=== PATIENT | female | born 1940 | race Caucasian/White ===

== ENCOUNTER 2016-06-20 21:26 | Inpatient (IN) | payer MEDICARE ==
[~2016-06-20] VITALS: Ht 152.4 cm; Wt 63.5 kg
[2016-06-20] MEDS ORDERED: CITALOPRAM HBR10 M1 ORAL (21:34)
[2016-06-20] MEDS ORDERED: VITAMIN D400 INTLU ORAL (21:34)
[2016-06-20] MEDS ORDERED: LEVOTHYROXINE25 MCG ORAL (21:34)
[2016-06-20] MEDS ORDERED: ZANTAC150 MG ORAL (21:34)
[2016-06-20] MEDS ORDERED: LORAZEPAM0.5 MG ORAL (21:34)
[2016-06-20] MEDS ORDERED: METOPROLOL SUCC25 MG ORAL (21:34)
[2016-06-20 22:00] LABS: BASOPHILS % (AUTO) 1.3 % (0.0-2.0); EOSINOPHILS % (AUTO) 1.2 % (0.0-3.0); LYMPHOCYTES % (AUTO) 35.8 % (20.0-45.0); MEAN CORPUSCULAR HEMOGLOBIN 31.6 PG (27.0-31.0); MEAN CORPUSCULAR VOLUME 96 FL (80-99); MEAN PLATELET VOLUME 7.3 FL (6.5-10.1); MONOCYTES % (AUTO) 10.3 % (1.0-10.0); NEUTROPHILS % (AUTO) 51.4 % (45.0-75.0); PLATELET COUNT 228 K/UL (150-450); RED BLOOD COUNT 3.86 M/UL (4.20-5.40); RED CELL DISTRIBUTION WIDTH 12.9 % (11.6-14.8); WHITE BLOOD COUNT 6.5 K/UL (4.8-10.8)
[2016-06-20 22:16] LABS: TROPONIN I < 0.30 ng/mL (<=0.30)
[2016-06-20 22:17] LABS: ALANINE AMINOTRANSFERASE 12 U/L (3-33); ANION GAP 16 (5-15); ASPARTATE AMINO TRANSFERASE 16 U/L (5-40); CALCIUM 7.7 mg/dL (8.6-10.2); CARBON DIOXIDE 22 mEQ/L (20-30); CHLORIDE 102 mEQ/L (98-107); CREATININE 0.8 mg/dL (0.5-0.9); HEMOLYSIS 10; POTASSIUM 3.4 mEQ/L (3.4-4.9); SODIUM 140 mEQ/L (135-145); TOTAL PROTEIN 5.8 g/dL (6.6-8.7)
[2016-06-20 22:25] VITALS: BP 168/104
[2016-06-20 22:27] LABS: CKMB 1.6 ng/mL (< 3.8)
[2016-06-20] MEDS ORDERED: TdaP Vaccine 0.5ml Syr IM ONE (22:45)
[2016-06-20] MEDS ORDERED: Lidocaine 1% 10mg/ml/Epi 0.005mg/ml 30ml vial INJ ONE (22:45)
--- NOTE | 2016-06-20 23:23 | Emergency Room Report ---
History of Present Illness General Chief Complaint: Syncope Source: Patient, Family Member Present Illness HPI 76 YO F BIBEMS with family with ?syncope and head trauma to pole. Patient denies mechanical trip and fall. Was feeling a "slight headache" to right forehead earlier. Not sure what happened. Denies precipitating chest pain, SOB , palpitaions, abd pain then or now. C/o mild headache to left forehead, left orbit now. Unknown tetanus. On ASA. 4 previous cardiac stents, last placed 8- 10 years prior. From [place]. Allergies: Coded Allergies: IODINE (Verified Allergy, Unknown, 06/20/16) Patient History Past Medical History: HTN, CAD Past Surgical History: other - Stent placement Pertinent Family History: none Now: No Immunizations: UTD Reviewed Nursing Documentation: PMH: Agreed, PSxH: Agreed Nursing Documentation-PMH Hx Cardiac Problems: Yes - 5X STENTS Hx Hypertension: Yes Review of Systems All Other Systems: negative except mentioned in HPI Physical Exam Vital Signs Date Time Temp Pulse Resp B/P Pulse Ox O2 Delivery O2 Flow Rate FiO2 06/20/16 21:25 98.6 81 18 164/83 97 Room Air Sp02 EP Interpretation: reviewed, normal General Appearance: normal inspection, well appearing, no apparent distress, alert, GCS 15, non-toxic Head: normocephalic, other - Significant swelling, hematoma to left lower orbit. EOMI, PERRLA. 2 lacerations above left eyebrow, one is 1cm linear and one is 2cm linear Eyes: bilateral eye EOMI, bilateral eye PERRL ENT: normal ENT inspection, hearing grossly normal, normal voice Neck: normal inspection, full range of motion, supple, no bony tend Respiratory: normal inspection, lungs clear, normal breath sounds, no respiratory distress, no retraction, no wheezing Cardiovascular #1: regular rate, rhythm, no edema Gastrointestinal: normal inspection, normal bowel sounds, non tender, soft, no guarding, no hernia Genitourinary: no CVA tenderness Musculoskeletal: normal inspection, back normal, normal range of motion, Marc' s Sign negative Neurologic: normal inspection, alert, oriented x3, responsive, health management consultant III-XII nml as tested, motor strength/tone normal, speech normal Psychiatric: normal inspection Skin: normal inspection Lymphatic: normal inspection Procedures Laceration/Wound Repair Laceration/Wound Repair : Consent: Verbal Wound Location: face Wound's Depth, Shape: superficial Wound Explored: clean Betadine Prep?: Yes Anesthesia: Lidocaine w/ Epi Wound Debrided: minimal Wound Repaired With: sutures Suture Size/Type: 5:0 Number of Sutures: 3 Layer Closure?: No Sterile Dressing Applied?: Yes Splint Applied?: No Sling Applied?: No Patient Tolerated: Well Complications: None Medical Decision Making Diagnostic Impression: Primary Impression: Syncope Qualified Codes: R55 - Syncope and collapse Additional Impression: Forehead laceration Qualified Codes: S01.81XA - Laceration without foreign body of other part of head, initial encounter ER Course Labs: No leuks. H&H stable. Troponin 0. CT head, facial bones, and C-spine negative for acute trauma ECG is first degree AV block CXR: No acute abnormality Lacerations repaired, see procedure note Analgesia provided Tetanus updated Family, patient OK with admission. Endorsed to Dr Olivera for tele admission at 1127pm EKG Diagnostic Results Rate: normal, other - 1st degree AV block Rhythm: NSR ST Segments: no acute changes ASA given to the pt in ED: No Rhythm Strip Diag. Results EP Interpretation: yes Rate: 84 Rhythm: NSR, no PVC's, no ectopy Chest X-Ray Diagnostic Results EP Interpretation: Yes Findings: no consolidation, no effusion, no pneumothorax, no acute cardiopulmonary disease Number of Views: 1 Last Vital Signs Date Time Temp Pulse Resp B/P Pulse Ox O2 Delivery O2 Flow Rate FiO2 06/20/16 22:25 97.7 74 14 168/104 98 Room Air Status: improved Disposition: ADMITTED INPATIENT Condition: Serious Referrals: NOT CHOSEN IPA/,REFERRING (PCP) DEB GUPTA M.D. Jun 20, 2016 23:23
[2016-06-20 23:30] VITALS: BP 140/98
[2016-06-20] MEDS ORDERED: Oxycodone/Acetaminophen 5-325 ORAL ONE (23:30)
[2016-06-20] MEDS ORDERED: Mylanta II UD 30ml ORAL PRN (23:45)
[2016-06-20] MEDS ORDERED: LORazepam Inj 2mg/ml 1ml IV PRN (23:45)
[2016-06-20] MEDS ORDERED: DuoNeb 0.5-3(2.5)mg/3ml neb HHN PRN (23:45)
[2016-06-20] MEDS ORDERED: Nitroglycerin Subl 0.4mg tab (Bottle Of 25) SL PRN (23:45)
[2016-06-20] MEDS ORDERED: Morphine Sulfate 2mg/ml Inj IVP PRN (23:45)
[2016-06-20] MEDS ORDERED: Miralax 17gm pkt ORAL PRN (23:45)
[2016-06-21 01:50] VITALS: BP 118/78
[2016-06-21 03:23] VITALS: BP 145/65
[2016-06-21] MEDS ORDERED: Levothyroxine 25mcg tab ORAL SCH (06:30)
[2016-06-21 07:16] LABS: PROTHROMBIN TIME 9.9 SEC (9.30-11.50)
[2016-06-21 07:46] LABS: ALANINE AMINOTRANSFERASE 12 U/L (3-33); ALBUMIN/GLOBULIN RATIO 1.4 (1.0-2.7); ANION GAP 14 (5-15); ASPARTATE AMINO TRANSFERASE 17 U/L (5-40); CALCIUM 8.9 mg/dL (8.6-10.2); CARBON DIOXIDE 25 mEQ/L (20-30); CHLORIDE 101 mEQ/L (98-107); CHOLESTEROL 223 mg/dL (< 200); CHOLESTEROL/HDL RATIO 3.9 (3.3-4.4); CREATININE 0.8 mg/dL (0.5-0.9); HEMOLYSIS 8; LDL CHOLESTEROL (CALC.) 147 mg/dL (60-99); POTASSIUM 4.2 mEQ/L (3.4-4.9); SODIUM 140 mEQ/L (135-145); TOTAL PROTEIN 6.3 g/dL (6.6-8.7)
[2016-06-21 07:48] LABS: BASOPHILS % (AUTO) 0.4 % (0.0-2.0); EOSINOPHILS % (AUTO) 0.6 % (0.0-3.0); LYMPHOCYTES % (AUTO) 25.3 % (20.0-45.0); MEAN CORPUSCULAR HEMOGLOBIN 31.2 PG (27.0-31.0); MEAN CORPUSCULAR HGB CONC 33.1 G/DL (32.0-36.0); MEAN CORPUSCULAR VOLUME 94 FL (80-99); MEAN PLATELET VOLUME 8.4 FL (6.5-10.1); MONOCYTES % (AUTO) 10.2 % (1.0-10.0); NEUTROPHILS % (AUTO) 63.6 % (45.0-75.0); PLATELET COUNT 226 K/UL (150-450); RED BLOOD COUNT 3.55 M/UL (4.20-5.40); RED CELL DISTRIBUTION WIDTH 12.7 % (11.6-14.8); WHITE BLOOD COUNT 6.4 K/UL (4.8-10.8)
[2016-06-21 08:00] VITALS: BP 116/53
[2016-06-21] MEDS ORDERED: Citalopram Hydrobromide 10 MG TAB ORAL SCH (09:00)
[2016-06-21] MEDS ORDERED: Heparin 5000 units/ml inj SUBQ SCH (09:00)
--- NOTE | 2016-06-21 10:15 | Diagnostic Imaging Report ---
Indication: PAIN, status post fall Technique: One view of the chest Comparison: none Findings: Lungs and pleural spaces are clear. Heart size is normal. Impression: No acute process
--- NOTE | 2016-06-21 10:45 | Neurology Progress Note ---
Objective Physical Exam Last Vital Signs Date Time Temp Pulse Resp B/P Pulse Ox O2 Delivery O2 Flow Rate FiO2 06/21/16 09:22 55 145/65 06/21/16 08:00 97.9 17 95 Room Air Laboratory Tests Test 06/20/16 21:44 06/21/16 04:40 White Blood Count 6.5 K/UL (4.8-10.8) 6.4 K/UL (4.8-10.8) Red Blood Count 3.86 M/UL (4.20-5.40) L 3.55 M/UL (4.20-5.40) L Hemoglobin 12.2 G/DL (12.0-16.0) 11.1 G/DL (12.0-16.0) L Hematocrit 37.1 % (37.0-47.0) 33.5 % (37.0-47.0) L Mean Corpuscular Volume 96 FL (80-99) 94 FL (80-99) Mean Corpuscular Hemoglobin 31.6 PG (27.0-31.0) H 31.2 PG (27.0-31.0) H Mean Corpuscular Hemoglobin Concent 33.0 G/DL (32.0-36.0) 33.1 G/DL (32.0-36.0) Red Cell Distribution Width 12.9 % (11.6-14.8) 12.7 % (11.6-14.8) Platelet Count 228 K/UL (150-450) 226 K/UL (150-450) Mean Platelet Volume 7.3 FL (6.5-10.1) 8.4 FL (6.5-10.1) Neutrophils (%) (Auto) 51.4 % (45.0-75.0) 63.6 % (45.0-75.0) Lymphocytes (%) (Auto) 35.8 % (20.0-45.0) 25.3 % (20.0-45.0) Monocytes (%) (Auto) 10.3 % (1.0-10.0) H 10.2 % (1.0-10.0) H Eosinophils (%) (Auto) 1.2 % (0.0-3.0) 0.6 % (0.0-3.0) Basophils (%) (Auto) 1.3 % (0.0-2.0) 0.4 % (0.0-2.0) Sodium Level 140 mEQ/L (135-145) 140 mEQ/L (135-145) Potassium Level 3.4 mEQ/L (3.4-4.9) 4.2 mEQ/L (3.4-4.9) Chloride Level 102 mEQ/L (98-107) 101 mEQ/L (98-107) Carbon Dioxide Level 22 mEQ/L (20-30) 25 mEQ/L (20-30) Anion Gap 16 (5-15) H 14 (5-15) Blood Urea Nitrogen 24 mg/dL (7-23) H 22 mg/dL (7-23) Creatinine 0.8 mg/dL (0.5-0.9) 0.8 mg/dL (0.5-0.9) Estimat Glomerular Filtration Rate mL/min (>60) mL/min (>60) Glucose Level 82 mg/dL (74-106) 83 mg/dL (74-106) Calcium Level 7.7 mg/dL (8.6-10.2) L 8.9 mg/dL (8.6-10.2) Total Bilirubin < 0.2 mg/dL (0.0-1.2) 0.2 mg/dL (0.0-1.2) Aspartate Amino Transf (AST/SGOT) 16 U/L (5-40) 17 U/L (5-40) Alanine Aminotransferase (ALT/SGPT) 12 U/L (3-33) 12 U/L (3-33) Alkaline Phosphatase 64 U/L (35-104) 61 U/L (35-104) Total Creatine Kinase 51 U/L (26-140) Creatine Kinase MB 1.6 ng/mL (< 3.8) Creatine Kinase MB Relative Index 3.1 Troponin I < 0.30 ng/mL (<=0.30) Total Protein 5.8 g/dL (6.6-8.7) L 6.3 g/dL (6.6-8.7) L Albumin 3.9 g/dL (3.5-5.2) 3.7 g/dL (3.5-5.2) Globulin 1.9 g/dL 2.6 g/dL Albumin/Globulin Ratio 2.0 (1.0-2.7) 1.4 (1.0-2.7) Prothrombin Time 9.9 SEC (9.30-11.50) Prothromb Time International Ratio 1.0 (0.9-1.1) Activated Partial Thromboplast Time 27 SEC (23-33) Triglycerides Level 96 mg/dL (< 150) Cholesterol Level 223 mg/dL (< 200) H LDL Cholesterol 147 mg/dL (60-99) H HDL Cholesterol 57 mg/dL (> 60) Cholesterol/HDL Ratio 3.9 (3.3-4.4) Thyroid Stimulating Hormone (TSH) 2.840 uIU/mL (0.300-4.500) Impression/Recommendations Problems: (1) s/p mechanical fall (2) Abnormality of gait due to impairment of balance (3) Forehead laceration Recommendations # [id number] DAT FLETCHER Jun 21, 2016 10:45
[2016-06-21 12:00] VITALS: BP 123/63
[2016-06-21 13:11] VITALS: BP_SYST 108; BP_SYST 123; BP_SYST 124; BP_DIAS 50; BP_DIAS 62; BP_DIAS 63
--- NOTE | 2016-06-21 15:43 | History & Physical ---
History and Physical History & Physicial Arron Olivrea MD Jun 21, 2016 15:43
--- NOTE | 2016-06-21 15:48 | Consultation ---
DATE OF CONSULTATION: 06/21/2016 NEUROLOGICAL CONSULTATION CONSULTING PHYSICIAN: Darrel Lewis M.D. REFERRING PHYSICIAN: Arron Olivera M.D. HISTORY OF PRESENT ILLNESS: This 76-year-old female seen in neurological consultation to evaluate episode of fall with a head trauma. The patient who is a visitor from [place] was at the tourist site with her family. She was walking on a carpet and trying to hold onto a rail, but instead she had some kind of flimsy cord. At one point, she tried to lean towards the cord, she lost balance, and fell down. She fell down on the left side of her body. She hit her head flat against the floor. She had no loss of consciousness. No changes in level of consciousness. She stayed on the floor until someone came in and try to help her out. Paramedics were called to the scene. She was then brought to emergency room complaining of mild headache in the right forehead. Her vital signs on admission stable. Blood pressure 164/83, temperature 98.6. Her initial workup included normal CBC studies, normal coagulation panel, and electrolyte panel with anion gap of 16, BUN of 24, calcium 7.7, otherwise quite normal. There is elevation in cholesterol 223 and LDL of 147, but normal TSH and troponin. Normal liver function. Her imaging studies included chest x-ray, which revealed no acute process. Her CT scan of the head as well as CT scan of the facial bones and CT scan of the cervical spine revealed no fracture, no dislocation, and no intracranial abnormalities. EKG revealed first-degree AV block. On examination, she had a left forehead laceration, which was repaired under local anesthesia. Her tetanus was updated. During observation, her vital signs included blood pressure 168/104. PAST MEDICAL HISTORY: The patient has a history of stroke resulted in mild left hemiparesis, gradually resolved; history of fall without loss of consciousness one year ago; history of hypertension; coronary artery disease, status post angioplasty; and some depression. MEDICATIONS: The patient's treatment now includes citalopram, levothyroxine, lorazepam, metoprolol, ranitidine, and vitamin D supplement. ALLERGIES: Amoxicillin, iodine, and promethazine. REVIEW OF SYMPTOMS: The patient indicates that she ambulates fairly well, but she has some fear of fall and for this reason, when outside, she is looking for someone to hold onto. Lately, she has limited ambulation. For the last few months, she is a and limited her physical activities, spending most of the time at home. The patient has no chest pain, no palpitations, no respiratory problems. She has numbness in her left hand following previous left elbow surgery. No urinary or bowel incontinence. No seizures. PHYSICAL EXAMINATION: GENERAL: A well-developed, well-nourished, very pleasant lady, not in acute distress, lying comfortably in bed, her family at bedside. VITAL SIGNS: Now stable. Blood pressure 145/65, heart rate of 55, and afebrile. HEENT: Head, normocephalic. There is a sterile gauze placed on the left frontal laceration. There is acute tenderness on palpation in the left frontal parietal area. There is acute tenderness on palpation in left TMJ area. With mouth opening, more pain in her left TMJ. EXTREMITIES: Upper and lower extremities without clubbing, cyanosis, or edema. There is a palpable tenderness in the left shoulder. Peripheral pulses 1+ symmetric. MENTAL STATUS: She is fully alert and oriented x3. Speech fluent. Language intact. No aphasia. No apraxia. She has a good recent recall, but responses are somewhat delayed. Mood apparently depressed. CRANIAL NERVES: Cranial Nerve II: Pupils both responding to light and accommodation. Extraocular movement intact. No nystagmus. CRANIAL NERVE V: Normal corneal responses. CRANIAL NERVE VII: No facial asymmetry. CRANIAL NERVE VIII: Slight decrease in hearing. CRANIAL NERVES IX THROUGH XII: Tongue is in midline. Symmetric palate elevation. MOTOR EXAMINATION: Normal muscle tone. Strength 5/5 in all extremities. No involuntary movement. Deep tendon reflexes 1+ and symmetric with downgoing toes on both sides. SENSORY EXAMINATION: Normal to pinprick and light touch, except decreased pin sensation, left hand. GAIT: Slow, but stable. IMPRESSION: 1. This is a 76-year-old female with a mechanical fall, resulting in a blunt head trauma with laceration and left TMJ injury. 2. History of right middle cerebral artery distribution stroke, resolved. 3. Coronary artery disease, status post angioplasty. 4. Hypertension. 5. Hyperlipidemia. RECOMMENDATION: 1. Aspirin 81 mg. 2. Statins. 3. Use cane for ambulation. 4. Continue with antidepressants as per family physician. 5. Neurologically stable. Thank you for allowing me to see this interesting patient in neurological consultation. Darrel Lewis M.D. DR: DAVIDSON JOB#: [id number] CC:
--- NOTE | 2016-06-21 22:29 | History and Physical Report ---
DATE OF ADMISSION: 06/20/2016 CHIEF COMPLAINT: Mechanical fall and left-sided facial injury. 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 The patient stated that she tried to reach an object and to hold onto, however she was unbalanced and the object was a rope and it was solid enough and subsequently she fell on the left side of her body and she sustained an injury to the left side of the face and she denies any chest pain, shortness of breath, or palpitation. She denies any abdominal pain prior to that. Denies any loss of consciousness. Denies any bowel or urinary incontinence. Denies any tongue biting. She complained about the headache, mild headache and forehead headache and left orbital pain and she is presently taking aspirin for stent placement in the heart. Shortly after initial evaluation in the emergency room, the patient was admitted to the hospital with fall, possible syncope versus mechanical fall. PAST MEDICAL HISTORY/PAST SURGICAL HISTORY: As above. History of hypertension, dyslipidemia, coronary artery disease, status post four stents placement, lupus, cataract surgery, right breast benign growth removal and breast reduction, history of hypothyroidism, and growth removal from the stomach about 20 years ago. MEDICATIONS: Medications at home are significant for aspirin, Synthroid, Celexa, lorazepam, metoprolol, Zantac, and vitamin D. ALLERGIES: Phenergan, iodine, and ampicillin. SOCIAL HISTORY: Denies any smoking, alcohol, or drugs. She lives by herself. She is presently visiting us from [place], [place]. She was in [place] with her family member, son, and [id number]. FAMILY HISTORY: Noncontributory. REVIEW OF SYSTEMS: Mostly as above. Denies any dysuria, frequency, hematuria, or hematochezia. Denies any hemoptysis or hematemesis. Denies any suicidal or homicidal ideation. Denies any double vision. Denies any loss of consciousness. PHYSICAL EXAMINATION: VITAL SIGNS: On admission, temperature is 98.6 degrees, pulse 81, respiration 18, and blood pressure 164/83. GENERAL: The patient is awake and responsive, no acute distress. HEENT: Head and Neck on examination, pupils are equal, round, and reactive to light. Extraocular movements are intact. Left side above the orbital area, there was a hematoma with laceration and laceration above the left eyebrow. One is 1 cm linear and other one is 2 cm linear, status post a suture in the ER. Neck is supple. No JVD. LUNGS: Good air entry. No wheezing or rales. HEART: S1 and S2. Regular rate and rhythm. No gallops. ABDOMEN: Soft, nondistended, and nontender. Positive bowel sounds. EXTREMITIES: No cyanosis, clubbing, or edema. NEUROLOGIC: Cranial nerves II through XII are grossly intact. Moves all four extremities. Gait is intact. GENITOURINARY AND RECTAL: She refused and deferred. NEUROLOGICAL: Mood and affect are intact. LABORATORY DATA: On admission from the ER, sodium is 140, potassium 3.4, chloride 102, bicarbonate 22, BUN 24, creatinine 0.8, glucose 82, and calcium 7.7. Total bilirubin is less than 0.2. Albumin is 3.9. Cholesterol is 223 and LDL is 147. PT is 0.9, INR 1.0, and PTT 27. WBC is 6.5, hemoglobin 12, hematocrit 37, and platelets 228,000. DIAGNOSTIC DATA: The patient had a chest x-ray, unremarkable. No acute process. The patient had an echocardiogram done, which noted to be ejection fraction of 55% to 60% with mild left ventricular hypertrophy. No evidence of pericardial effusion. The pulmonic valve was not well visualized. Trace mitral regurgitation. Trace tricuspid regurgitation. Otherwise, all negative. Carotid Duplex was essentially unremarkable as well. EKG is normal sinus rhythm, ventricular rate of 84, no ST-elevation was noted, and nonspecific T-wave changes. ASSESSMENT: 1. Mechanical fall. 2. Gait disturbance and balance problem. 3. Left side of forehead laceration. 4. Coronary artery disease, status post percutaneous transluminal coronary angioplasty with stent x4. 5. History of lupus. 6. Hypertension. 7. Dyslipidemia. PLAN: At this time, the patient has been seen by Dr. Darrel Lewis from Neurology, who confirmed that the patient had status post mechanical fall and will follow up. After further discussion with the patient as well as family member, I concede to discharge the patient to home today to be followed up with the primary doctor within one to two weeks. Arron Olivera M.D. DR: Cliff JOB#: [id number] CC:
--- NOTE | 2016-06-22 12:40 | Diagnostic Imaging Report ---
APPROVED REPORT CPT Code: 36466 Vascular Symptoms CVA/TIA: Doppler Spectral Velocity Analysis RightLeft carotid arteries. ECA - Imaging reveals irregular plaque in the external carotid artery. The Doppler signal indicates the degree of stenosis is minimal (10%) in the external carotid artery. VERTEBRAL - The vertebral artery is patent, without evidence of stenosis or steal. LEFT SIDE: CCA - Imaging reveals no significant plaque in the common carotid artery. ICA arteries. The Doppler signal indicates the degree of stenosis is minimal (10-20%) in the internal carotid, and in the external carotid arteries. VERTEBRAL - The vertebral artery is patent, without evidence of stenosis or steal.
[2016-06-24] MEDS ORDERED: ATORVASTATIN CA10 MG ORAL (07:02)
[2016-06-24] MEDS ORDERED: ASPIR 8181 MG ORAL (07:02)
--- NOTE | 2016-06-24 07:07 | Discharge Summary ---
Discharge Summary Hospital Course Date of Admission Jun 20, 2016 at 22:18 Date of Discharge Jun 21, 2016 at 16:22 Admitting Diagnosis SYNCOPE HPI Gladys Parikh is a 76 year old female who was admitted on Jun 20, 2016 at 22:18 for Syncope Hospital Course dc summary dictated # [id number] Discharge Medications New Medications: Aspirin* (Aspir 81*) 81 Mg Tablet.dr 81 MG ORAL DAILY, #30 TAB Atorvastatin Calcium* (Lipitor*) 10 Mg Tablet 10 MG ORAL BEDTIME, #30 TAB Continued Medications: Citalopram Hydrobromide* (Citalopram Hbr*) 10 Mg Tablet 10 MG ORAL DAILY, TAB Levothyroxine Sodium* (Levothyroxine Sodium*) 25 Mcg Tablet 25 MCG ORAL DAILY, TAB Take in the morning on an empty stomach, at least 30 minutes before food. Lorazepam* (Lorazepam*) 0.5 Mg Tablet 0.5 MG ORAL THREE TIMES A DAY PRN for For Anxiety, TAB Metoprolol Succinate* (Metoprolol Succinate*) 25 Mg Tab.er.24h 25 MG ORAL DAILY, TAB Ranitidine Hcl* (Zantac*) 150 Mg Tablet 300 MG ORAL DAILY, #30 TAB 0 Refills Vitamin D (Vitamin D3) 400 Unit Tablet 400 UNITS ORAL DAILY, TAB Discharge Condition Upon Discharge: stable Discharge Disposition Patient was discharged to Home () Discharge Diagnoses: Discharge Instructions Discharge Instructions Special Instructions I have been assigned to complete a D/C Summary on this account. I was not involved in the patient management Chely Ennis NP (Vanchtein) Jun 24, 2016 07:07
--- NOTE | 2016-06-24 11:36 | Diagnostic Imaging Report ---
Indication: PAIN, status post fall Technique: Spiral acquisitions obtained through the cervical spine. No IV contrast utilized. Multiplanar reconstructions were generated. Total dose length product 241 mGycm. 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 The cervical lordosis is somewhat exaggerated, suspect an artifact of positioning. There is very slight anterior offset of C4 on C5. Otherwise normal bony alignment. No prevertebral soft tissue swelling. No acute fractures. No dislocations. The vertebral body heights are preserved. There is degenerative disc narrowing at C5-6 and C6-7. At C2-3, no significant disc old or protrusion or spinal stenosis. There is moderate neural foraminal narrowing on the left. At C3-4, no significant disc bulge or protrusion or spinal stenosis. Facet and uncinate hypertrophy results in mild right and severe left neural foraminal narrowing At C4-5, no significant disc bulge or protrusion. Facet hypertrophy results in severe narrowing of the left neural foramen. At C5-6,there is mild right, moderate to severe left neural foraminal stenosis. There is mild narrowing of the spinal canal due to posterior osteophytes and short pedicles. At C6-7, no significant disc bulge or protrusion or spinal stenosis. There is severe right, moderate left neural foraminal stenosis, due to uncinate and facet hypertrophy. At C7-T1, no significant disc bulge or protrusion. There is mild narrowing of left neural foramen. The included extraspinal soft tissues are unremarkable. Impression: No acute bony trauma Occipital and C1 segmentation anomaly, as described Multilevel degenerative changes, as detailed on a level by level basis above. This agrees with the preliminary interpretation provided overnight by [facility] teleradiology service. The CT scanner at [facility] is accredited by the [employer] and the scans are performed using protocols designed to limit radiation exposure to as low as reasonably achievable to attain images of sufficient resolution adequate for diagnostic evaluation.
--- NOTE | 2016-06-24 12:30 | Cardiology Report ---
APPROVED REPORT EKG Measurement Heart [id number] Sinus rhythm with 1st degree AV block Abnormal ECG
--- NOTE | 2016-06-25 04:09 | Discharge Summary 2 SIG ---
DATE OF ADMISSION: 06/20/2016 DATE OF DISCHARGE: 06/21/2016 REASON FOR ADMISSION: 76-year-old female with past medical history significant for stroke 6 years ago, hypertension, dyslipidemia, coronary artery disease, status post multiply stent placement, history of lupus, benign breast mass growth in the stomach, s/p resection 20 years ago, presented to the hospital after she sustained mechanical fall and head injury to the left side of her face. The patient, at that time stated that she tried to reach an object and hold onto it, however, she was unbalanced and fell on the left side of her body and sustained injury to the left side of her face. Upon presentation, she denied any chest pain, shortness of breath, or palpitations. She denied abdominal pain. She denies loss of consciousness or blackouts. She denied bowel or urinary incontinence. No tongue biting. No history of seizures. She did complain of the headache located mainly in the forehead and the left orbital pain. The patient was taking aspirin due to history of stent placement. The patient undergone CT of the head and CT of the C-spine, which were both negative. Basic laboratories were done. Electrolytes were stable. No leukocytosis. Stable hemoglobin and hematocrit. Troponin negative. EKG revealed sinus rhythm with first-degree AV block. Chest x-ray revealed no acute cardiopulmonary disease. The patient sustained a laceration to the forehead, which was repaired in the emergency room. The patient admitted to telemetry floor for further management. ADMITTING DIAGNOSES: 1. Status post fall 2. Possible syncope versus mechanical fall. 3. Forehead laceration with repair HOSPITAL STAY: The patient was admitted to telemetry floor. On telemetry in sinus rhythm with first-degree AV block. No evidence of arrhythmias. Neurology evaluation was requested . As mentioned above, CT of the head revealed no acute intracranial pathology. CT of the C-spine revealed no acute pathology. There was no facial bone injury. Neurologist evaluated the patient and recommended continue aspirin as well as add statin since lipid panel revealed elevated total cholesterol and elevated LDL. Carotid duplex was essentially negative. The orthostatic blood pressure was checked. No evidence of orthostatic changes. The patient was working with physical occupational therapists. Fall precaution maintained. Blood pressure was stable with beta oneil. DVT prophylaxis provided. The patient has a history of hypothyroidism, TSH within normal limits. The patient visited out of state and wanted to be discharged. Physical therapy deemed her stable. Due to rapid and unexpected improvement in the patient condition, the patient was discharged the next day. DISCHARGE DIAGNOSES: 1. Status post fall. 2. Possible syncope. 3. Blunt head trauma. 4. Forehead laceration status post repair. 5. History of coronary artery disease with angioplasty. 6. History of cerebrovascular accident. 7. Hyperlipidemia. 8. Hypothyroidism. 9. Hypertension. 10. Gait and balance disturbance. DISCHARGE MEDICATIONS: See medication reconciliation list. DISCHARGE INSTRUCTIONS: The patient discharged home. Follow up with the primary medical doctor. Arron Olivera M.D. I have been assigned to dictate discharge summary on this account and I was not involved in the patient's management. Chely LairdWoodhull Medical CenterNova N.PAriadne DR: Winnie JOB#: [id number] CC: ENRIQUE
--- NOTE | 2016-06-28 14:37 | Diagnostic Imaging Report ---
Indication: PAIN left orbital trauma, swelling, fall Technique: spiral acquisitions obtained through the brain. Angled axial and coronal 5 x 5 mm slices were reconstructed. No IV contrast utilized. Radiation dose was minimized using automated exposure control Total dose length product 1320s mGycm. CTDIvol(s) 70 mGy Comparison: none FINDINGS: No acute hemorrhage or edema. No mass effect or midline shift. There is age-related enlargement of the ventricles and extra axial CSF spaces. There is periventricular deep white matter ischemic change. Normal you-white differentiation. Visualized orbits are unremarkable. There is bilateral maxillary sinus mucosal disease.. Intact calvarium. There is a round 16 mm diameter soft tissue hematoma in the left malar region. No underlying malar fracture is demonstrated. IMPRESSION: Chronic and age-related changes. Negative for acute intracranial bleed or mass effect Evidence of left malar region soft tissue trauma This agrees with the preliminary interpretation provided overnight by [facility]. The CT scanner at [facility] is accredited by the [employer] and the scans are performed using protocols designed to limit radiation exposure to as low as reasonably achievable to attain images of sufficient resolution adequate for diagnostic evaluation
--- NOTE | 2016-06-28 14:37 | Cardiology Report ---
APPROVED REPORT EXAM: Two-dimensional and M-mode echocardiogram with Doppler and color Doppler. INDICATION LV function M-Mode DIMENSIONS IVSd1.2 (0.7-1.1cm)Left Atrium (MM)3.4 (1.6-4.0cm) LVDd3.9 (3.5-5.6cm)Aortic Root2.7 (2.0-3.7cm) PWd1.1 (0.7-1.1cm)Aortic Cusp Exc.1.2 (1.5-2.0cm) LVDs2.5 (2.5-4.0cm) PWs1.4 cm Technically difficult study due to poor acoustical windows. Normal left ventricular chamber size, systolic function and wall motion to extent visualized. Left ventricular ejection fraction estimated to be 55-60 %. Mild left ventricular hypertrophy. No evidence of pericardial effusion. All other cardiac chamber sizes are within normal limits. Aortic valve calcification with decreased cusp excursion c/w moderate aortic stenosis. Thickened mitral valve leaflets with normal excursion. Mitral annulus and aortic root calcification. Pulmonic valve not well visualized. Normal tricuspid valve structure. IVC at normal size and collapsing with respiration. A color flow and spectral Doppler study was performed and revealed: Trace aortic insufficiency. Peak aortic valve gradient of 28 mm Hg and a mean of 16 mmHg. Trace mitral regurgitation. reduced left ventricular relaxation c/w impaired relaxation diastolic dysfunction. Trace tricuspid regurgitation. Tricuspid systolic velocities suggests peak right ventricular systolic pressure of 25 mmHg.
--- NOTE | 2016-06-28 14:37 | Diagnostic Imaging Report ---
Indications: PAIN, status post fall, left orbital trauma swelling Technique: Spiral images obtained through the facial bones. No IV contrast utilized. Multiplanar reconstructions were generated.Total dose length product 442 mGycm. CTDIvol(s) 20mGy Comparison: None Findings: There is a small soft tissue hematoma in the left malar region is superficial to the malar eminence. No underlying facial fracture demonstrated. There is minimal bilateral maxillary sinus mucosal disease. There is also some dependent fluid or mucosal disease within the sphenoid sinus. The remainder the sinuses are clear. Optic globes demonstrate evidence of prior bilateral cataract surgery. The facial soft tissues are unremarkable. Impression: Small left malar region soft tissue hematoma No acute bony trauma Minimal sinus disease This agrees with the preliminary interpretation provided overnight by [facility]. The CT scanner at [facility] is accredited by the [employer] and the scans are performed using protocols designed to limit radiation exposure to as low as reasonably achievable to attain images of sufficient resolution adequate for diagnostic evaluation.
== END 2016-06-21 16:22 | disposition home or self-care (01) | DRG 605 ==
LOC: EDBD 21:26 → EMR 21:55 → 2E 22:18 → EDBEDREQ 06-21 01:22
PROC: 0HQ1XZZ Repair Face Skin, External Approach (ICD-10-PCS; principal; 2016-06-20)
DX: S01.81XA Laceration without foreign body of other part of head, initial encounter (principal); S09.90XA Unspecified injury of head, initial encounter; R55 Syncope and collapse; I10 Essential (primary) hypertension; R26.9 Unspecified abnormalities of gait and mobility; Z23 Encounter for immunization; I25.10 Atherosclerotic heart disease of native coronary artery without angina pectoris; Z95.5 Presence of coronary angioplasty implant and graft; I44.0 Atrioventricular block, first degree; E78.5 Hyperlipidemia, unspecified; E03.9 Hypothyroidism, unspecified; W18.39XA Other fall on same level, initial encounter; Y92.019 Unspecified place in single-family (private) house as the place of occurrence of the external cause; Y99.8 Other external cause status; Z86.73 Personal history of transient ischemic attack (TIA), and cerebral infarction without residual deficits; Z79.82 Long term (current) use of aspirin
CPT/HCPCS: 36415; 70450; 70486; 71010; 72125; 80053; 80061; 82550; 82553; 84443; 84484; 85025; 85610; 85730; 87070; 87205; 90471; 90715; 93005; 93306; 93880; 94664